=== PATIENT | female | born 1965 | race Caucasian/White ===

== ENCOUNTER 2023-12-28 14:11 | Inpatient (IN) | payer MEDICARE, OTHER ==
[~2023-12-28] VITALS: Ht 170.2 cm; Wt 90.7 kg
[2023-12-28] MEDS: IV NS 1000 ML 1,000 ML IV ONE ×2 (14:57→19:25)
[2023-12-28] MEDS: HYDROMORPHONE 1 MG/1 ML DISP.SYRIN IV ONE (15:15)
[2023-12-28] MEDS ORDERED: PANTOPRAZOLE SODIUM 40 MG VIAL ONE (15:57)
[2023-12-28] MEDS ORDERED: ONDANSETRON 4 MG/2 ML VIAL ONE (15:57)
[2023-12-28 16:06] LABS: *BILIRUBIN,URIN 2+ (NEGATIVE); *BLOOD, URINE NEGATIVE (NEGATIVE); *CLARITY,URINE CLEAR (CLEAR); *COLOR,URINE DARK YELLOW (YELLOW); *KETONES,URINE TRACE (NEGATIVE); *PROTEIN,URINE 2+ (NEGATIVE); *UROBILINOGEN,URINE 0.2 E.U./dl (NORMAL); LEUKOCYTE ESTERASE ,URINE NEGATIVE (NEGATIVE); NITRITE, URINE NEGATIVE (NEGATIVE); UGLUCOSE NEGATIVE (NEGATIVE)
[2023-12-28] MEDS: ONDANSETRON 4 MG/2 ML VIAL IV ONE (16:06)
[2023-12-28] MEDS: PANTOPRAZOLE SODIUM 40 MG VIAL IV ONE (16:06)
[2023-12-28] MEDS ORDERED: ONDA-104 PO (16:16)
[2023-12-28] MEDS ORDERED: PANT40TA2 PO (16:16)
[2023-12-28] MEDS ORDERED: POTA20PA34 PO (16:16)
[2023-12-28] MEDS ORDERED: ACET325C7 PO (16:16)
[2023-12-28] MEDS ORDERED: VIT1TABL46 PO (16:16)
[2023-12-28] MEDS ORDERED: DEXT38GE12 PO (16:16)
[2023-12-28] MEDS ORDERED: INSU100C4 SQ (16:16)
[2023-12-28] MEDS ORDERED: APIX5TAB PO (16:16)
[2023-12-28] MEDS ORDERED: GLUC1KIT IM (16:16)
[2023-12-28] MEDS ORDERED: INSU100I26 SQ (16:16)
[2023-12-28] MEDS ORDERED: LOPE2TAB25 PO (16:16)
[2023-12-28] MEDS ORDERED: NITR0.4T48 SL (16:16)
[2023-12-28] MEDS ORDERED: AMIO100T4 PO (16:16)
[2023-12-28] MEDS ORDERED: LEVA1.2528 NEB (16:16)
[2023-12-28] MEDS ORDERED: FLUD0.1T PO (16:16)
[2023-12-28] MEDS ORDERED: SEVE800T8 PO (16:16)
[2023-12-28] MEDS ORDERED: LEVO125T8 PO (16:16)
[2023-12-28] MEDS ORDERED: MIDO10TA PO (16:16)
[2023-12-28] MEDS ORDERED: LINA5TAB PO (16:16)
[2023-12-28] MEDS ORDERED: AMIN30LI2 PO (16:16)
[2023-12-28 16:37] LABS: BACTERIA,URINE FEW /HPF (NONE SEEN); RBC,URINE 0-3 /HPF (0-3); SQUAMOUS EPITHELIAL CELL,UR FEW /HPF (NONE SEEN)
[2023-12-28 17:01] LABS: NUCLEATED RED BLOOD CELLS 0.1 /100WBC
[2023-12-28 17:24] LABS: ALANINE AMINOTRANSFERASE 115 U/L (14-59); ALBUMIN 3.2 g/dL (3.4-5.0); ALKALINE PHOSPHATASE 239 U/L (50-136); ASPARTATE AMINOTRANSFERASE 176 U/L (15-37); BILIRUBIN,DIRECT 0.9 mg/dL (0.0-0.2); BILIRUBIN,TOTAL 1.9 mg/dL (0.2-1.0); CALCIUM 9.5 mg/dL (8.5-10.1); CARBON DIOXIDE 24 mmol/L (21-32); CHLORIDE 99 mmol/L (98-107); CREATININE 3.5 mg/dL (0.6-1.3); GLUCOSE 297 mg/dL (74-106); LIPASE 19 U/L (16-77); POTASSIUM 3.5 mmol/L (3.5-5.1); SODIUM SERUM 139 mmol/L (136-145); TOTAL PROTEIN, SERUM 6.7 g/dL (6.4-8.2); UREA NITROGEN, BLOOD 36 mg/dL (7-18)
[2023-12-28 17:31] LABS: WHITE BLOOD COUNT (AUTO) 11.9 K/uL (3.8-11.8)
[2023-12-28 17:32] LABS: HEMOGLOBIN 14.5 g/dL (10.9-14.3); RED BLOOD CELL COUNT(AUTO) 4.46 MIL/uL (3.63-4.92)
[2023-12-28 17:33] LABS: LYMPHOCYTES % (AUTO) 3.5 % (20.5-51.5); MEAN CORPUSCULAR HEMOGLOBIN 32.6 uug (24.7-32.8); MEAN CORPUSCULAR HGB CONC 33 g/dL (32.3-35.6); MEAN CORPUSCULAR VOLUME 98.7 fL (75.5-95.3); NEUTROPHILS % (AUTO) 92.6 % (38.5-71.5); PLATELET COUNT (AUTO) 288 K/uL (179-408); RED CELL DISTRIBUTION WIDTH 16.4 % (12.3-17.7)
[2023-12-28 17:34] LABS: EOSINOPHILS % (AUTO) 0.1 % (0.0-7.0); LYMPHOCYTES # (AUTO) 0.4 K/uL (0.8-4.8); MONOCYTES # (AUTO) 0.5 K/uL (0.1-1.30); MONOCYTES % (AUTO) 3.8 % (0.0-11.0); NEUTROPHILS # (AUTO) 11.1 K/uL (1.8-8.9)
[2023-12-28 17:35] LABS: DIFFERENTIAL COMMENT 1
[2023-12-28] MEDS ORDERED: HYDROCODONE/APAP 5-325MG TABLET PO PRN (20:00)
[2023-12-28] MEDS ORDERED: REMEDY ESSENTIAL ZINC PASTE 113 GM TP PRN (20:00)
[2023-12-28] MEDS ORDERED: NOREPINEPHRINE BITARTRATE 32 MG in IV NORMAL SALINE 218 ML IV PRN (21:30)
[2023-12-28] MEDS ORDERED: PIPERACILLIN SODIUM/TAZOBACTAM 4.5 G in IV DEXTROSE 5% 50 ML IV SCH (22:00)
[2023-12-28] MEDS: VANCOMYCIN IV 1,000 MG in IV DEXTROSE 5% 250 ML IV ONE (22:00)
[2023-12-28] MEDS ORDERED: VANCOMYCIN IV 200 ML ONE (22:38)
[2023-12-28] MEDS ORDERED: PIPERACILLIN/TAZO 4.5 GM VIAL IV ONE (22:39)
[2023-12-28] MEDS ORDERED: NOREPINEPHRINE BITARTRATE 4 MG/4 ML VIAL IV ONE (22:39)
[2023-12-28] MEDS ORDERED: DEXTROSE 50% 50 ML DISP.SYRIN IV PRN (22:45)
[2023-12-28] MEDS: ONDANSETRON 4 MG/2 ML VIAL IV PRN (23:04)
[2023-12-28] MEDS: PIPERACILLIN SODIUM/TAZOBACTAM 4.5 G in IV DEXTROSE 5% 50 ML IV SCH (23:04)
[2023-12-28] MEDS: BLOOD SUGAR DIAGNOSTIC 1 EACH STRIP VI SCH (23:15)
[2023-12-28] MEDS ORDERED: INSULIN REGULAR, HUMAN 1000 UNIT/10 ML VIAL ONE (23:37)
[2023-12-28] MEDS: INSULIN REGULAR, HUMAN 1000 UNIT/10 ML VIAL SQ PRN (23:41)
[2023-12-29] VITALS (67 sets, daily range): BP systolic 30–152; BP diastolic 15–117; TEMP 97.2–98; O2SAT 82–99
[2023-12-29] MEDS ORDERED: ZOLPIDEM 5 MG TABLET PO PRN (01:00)
[2023-12-29 04:59] LABS: BASOPHILS # (AUTO) 0.4 K/UL (0.0-0.2); BASOPHILS % (AUTO) 3.1 % (0.0-2.0); HEMATOCRIT 45.1 % (31.2-41.9); HEMOGLOBIN 15.1 g/dL (10.9-14.3); LYMPHOCYTES # (AUTO) 0.5 K/uL (0.8-4.8); LYMPHOCYTES % (AUTO) 4.2 % (20.5-51.5); MEAN CORPUSCULAR HEMOGLOBIN 33.1 uug (24.7-32.8); MEAN CORPUSCULAR HGB CONC 34 g/dL (32.3-35.6); MONOCYTES # (AUTO) 0.6 K/uL (0.1-1.30); MONOCYTES % (AUTO) 5.1 % (0.0-11.0); NEUTROPHILS % (AUTO) 87.6 % (38.5-71.5); PLATELET COUNT (AUTO) 256 K/uL (179-408); RED BLOOD CELL COUNT(AUTO) 4.56 MIL/uL (3.63-4.92); RED CELL DISTRIBUTION WIDTH 16.8 % (12.3-17.7); WHITE BLOOD COUNT (AUTO) 12.6 K/uL (3.8-11.8)
[2023-12-29 05:12] LABS: CALCIUM 9.3 mg/dL (8.5-10.1); CREATININE 4.4 mg/dL (0.6-1.3); MAGNESIUM 3.1 mg/dL (1.8-2.4); PHOSPHOROUS 5.2 mg/dL (2.5-4.9)
[2023-12-29 05:17] LABS: DIFFERENTIAL COMMENT 1
[2023-12-29] MEDS ORDERED: PIPERACILLIN/TAZO 4.5 GM VIAL IV ONE (05:25)
[2023-12-29] MEDS: ACETAMINOPHEN 325 MG TABLET PO PRN (05:29)
[2023-12-29 05:42] LABS: BAND % (MANUAL) 10 % (0-10); LYMPHOCYTES % (MANUAL) 13 % (20-40); MONOCYTES % (MANUAL) 8 % (2-10); NEUTROPHILS % (MANUAL) 69 % (42-75)
[2023-12-29] MEDS: PANTOPRAZOLE SODIUM 40 MG TABLET.DR PO SCH (06:06)
[2023-12-29] MEDS ORDERED: DEXTROSE 50% 50 ML DISP.SYRIN IV PRN (07:00)
[2023-12-29] MEDS: IV NORMAL SALINE 500 ML IV ONE (08:15)
[2023-12-29] MEDS: NOREPINEPHRINE BITARTRATE 32 MG in IV NORMAL SALINE 218 ML IV PRN (08:37)
[2023-12-29] MEDS ORDERED: ACET-2154 PO (11:09)
[2023-12-29] MEDS: BLOOD SUGAR DIAGNOSTIC 1 EACH STRIP VI SCH (11:38)
[2023-12-29] MEDS: INSULIN REGULAR, HUMAN 1000 UNIT/10 ML VIAL SQ PRN (11:42)
[2023-12-29] MEDS ORDERED: ACETAMINOPHEN 325 MG TABLET-SA PATIENTS-PAIN ONLY PO PRN (12:00)
[2023-12-29] MEDS ORDERED: NITROGLYCERIN 0.4 MG/TAB BOTTLE SL PRN (12:00)
[2023-12-29] MEDS ORDERED: ACETAMINOPHEN 325 MG TABLET PO PRN (12:15)
[2023-12-29] MEDS: APIXABAN 5 MG TABLET PO SCH (13:30)
[2023-12-29] MEDS: MIDODRINE HCL 5 MG TABLET PO SCH (13:49)
[2023-12-29] MEDS: SEVELAMER CARBONATE 800 MG TABLET PO SCH (13:49)
[2023-12-29] MEDS: PIPERACILLIN/TAZO 2.25 G in IV DEXTROSE 5% 50 ML IV SCH (14:26)
[2023-12-29] MEDS: FLUDROCORTISONE ACETATE 0.1 MG TABLET PO SCH (18:10)
[2023-12-29] MEDS: IV NS 1000 ML 1,000 ML IV PRN (20:18)
[2023-12-29] MEDS: INSULIN GLARGINE,HUM 300 UNITS/3 ML CARTRIDGE SQ SCH (20:32)
[2023-12-30] VITALS (101 sets, daily range): BP systolic 50–166; BP diastolic 18–146; TEMP 97.8–98.6; O2SAT 78–100
[2023-12-30] MEDS: LEVOTHYROXINE SODIUM 125 MCG TABLET PO SCH (06:38)
[2023-12-30 07:04] LABS: BASOPHILS # (AUTO) 0.1 K/UL (0.0-0.2); BASOPHILS % (AUTO) 1.6 % (0.0-2.0); EOSINOPHILS # (AUTO) 0.3 K/uL (0.0-0.7); EOSINOPHILS % (AUTO) 2.9 % (0.0-7.0); HEMATOCRIT 43.8 % (31.2-41.9); HEMOGLOBIN 14.8 g/dL (10.9-14.3); LYMPHOCYTES # (AUTO) 0.6 K/uL (0.8-4.8); LYMPHOCYTES % (AUTO) 7.1 % (20.5-51.5); MEAN CORPUSCULAR HEMOGLOBIN 33.4 uug (24.7-32.8); MEAN CORPUSCULAR HGB CONC 34 g/dL (32.3-35.6); MEAN CORPUSCULAR VOLUME 98.6 fL (75.5-95.3); MONOCYTES # (AUTO) 0.8 K/uL (0.1-1.30); MONOCYTES % (AUTO) 9.4 % (0.0-11.0); PLATELET COUNT (AUTO) 321 K/uL (179-408); RED BLOOD CELL COUNT(AUTO) 4.44 MIL/uL (3.63-4.92); RED CELL DISTRIBUTION WIDTH 16.8 % (12.3-17.7); WHITE BLOOD COUNT (AUTO) 8.8 K/uL (3.8-11.8)
[2023-12-30 07:21] LABS: DIFFERENTIAL COMMENT 1
[2023-12-30 07:33] LABS: CALCIUM 9.3 mg/dL (8.5-10.1); CREATININE 5.1 mg/dL (0.6-1.3); MAGNESIUM 3.3 mg/dL (1.8-2.4); PHOSPHOROUS 4.8 mg/dL (2.5-4.9); POTASSIUM 3.9 mmol/L (3.5-5.1)
[2023-12-30] MEDS: AMIODARONE HCL 200 MG TABLET PO SCH (09:00)
[2023-12-30] MEDS: LINAGLIPTIN 5 MG TABLET PO SCH (09:08)
[2023-12-30] MEDS ORDERED: DEXTROSE 50% 50 ML DISP.SYRIN IV PRN (15:00)
[2023-12-30] MEDS: BLOOD SUGAR DIAGNOSTIC 1 EACH STRIP VI SCH (16:17)
[2023-12-30] MEDS ORDERED: BLOOD SUGAR DIAGNOSTIC 1 EACH STRIP VI SCH (16:30)
[2023-12-30] MEDS: IV NS 1000 ML 1,000 ML IV PRN (18:33)
[2023-12-31] VITALS (51 sets, daily range): BP systolic 95–157; BP diastolic 44–127; TEMP 97.4–98.7; O2SAT 96–100
[2023-12-31 04:52] LABS: CALCIUM 8.1 mg/dL (8.5-10.1); CREATININE 5.6 mg/dL (0.6-1.3); MAGNESIUM 2.9 mg/dL (1.8-2.4); PHOSPHOROUS 5.1 mg/dL (2.5-4.9); POTASSIUM 3.6 mmol/L (3.5-5.1)
[2023-12-31] MEDS: INSULIN REGULAR, HUMAN 1000 UNIT/10 ML VIAL SQ PRN (08:20)
[2024-01-01] VITALS (19 sets, daily range): BP systolic 93–117; BP diastolic 45–62; TEMP 96.5–98.5; O2SAT 98–100
[2024-01-01 05:13] LABS: BASOPHILS % (AUTO) 0.4 % (0.0-2.0); EOSINOPHILS % (AUTO) 0.5 % (0.0-7.0); HEMATOCRIT 26.9 % (31.2-41.9); HEMOGLOBIN 8.9 g/dL (10.9-14.3); LYMPHOCYTES # (AUTO) 0.5 K/uL (0.8-4.8); LYMPHOCYTES % (AUTO) 9.1 % (20.5-51.5); MEAN CORPUSCULAR HEMOGLOBIN 32.9 uug (24.7-32.8); MEAN CORPUSCULAR HGB CONC 33 g/dL (32.3-35.6); MONOCYTES # (AUTO) 0.5 K/uL (0.1-1.30); MONOCYTES % (AUTO) 8.2 % (0.0-11.0); NEUTROPHILS % (AUTO) 81.8 % (38.5-71.5); PLATELET COUNT (AUTO) 137 K/uL (179-408); RED BLOOD CELL COUNT(AUTO) 2.72 MIL/uL (3.63-4.92); RED CELL DISTRIBUTION WIDTH 16.9 % (12.3-17.7); WHITE BLOOD COUNT (AUTO) 6.1 K/uL (3.8-11.8)
[2024-01-01 05:17] LABS: DIFFERENTIAL COMMENT 1
[2024-01-01 05:22] LABS: CALCIUM 7.7 mg/dL (8.5-10.1); CREATININE 5.1 mg/dL (0.6-1.3); MAGNESIUM 2.6 mg/dL (1.8-2.4); PHOSPHOROUS 4.1 mg/dL (2.5-4.9)
[2024-01-01 05:25] LABS: POTASSIUM 2.6 mmol/L (3.5-5.1)
[2024-01-01 12:19] LABS: CALCIUM 7.8 mg/dL (8.5-10.1); CREATININE 2.7 mg/dL (0.6-1.3)
[2024-01-01 12:24] LABS: POTASSIUM 2.7 mmol/L (3.5-5.1)
[2024-01-01] MEDS: POTASSIUM CHLORIDE 50 ML IV SCH (15:09)
[2024-01-01 15:33] LABS: BASOPHILS # (AUTO) 0.1 K/UL (0.0-0.2); BASOPHILS % (AUTO) 3.1 % (0.0-2.0); HEMATOCRIT 25.9 % (31.2-41.9); HEMOGLOBIN 8.8 g/dL (10.9-14.3); LYMPHOCYTES # (AUTO) 0.3 K/uL (0.8-4.8); LYMPHOCYTES % (AUTO) 5.7 % (20.5-51.5); MEAN CORPUSCULAR HEMOGLOBIN 32.9 uug (24.7-32.8); MEAN CORPUSCULAR HGB CONC 34 g/dL (32.3-35.6); MONOCYTES # (AUTO) 0.4 K/uL (0.1-1.30); MONOCYTES % (AUTO) 9.1 % (0.0-11.0); NEUTROPHILS # (AUTO) 3.7 K/uL (1.8-8.9); NEUTROPHILS % (AUTO) 81.1 % (38.5-71.5); PLATELET COUNT (AUTO) 136 K/uL (179-408); RED BLOOD CELL COUNT(AUTO) 2.67 MIL/uL (3.63-4.92); RED CELL DISTRIBUTION WIDTH 16.1 % (12.3-17.7); WHITE BLOOD COUNT (AUTO) 4.6 K/uL (3.8-11.8)
[2024-01-01 15:37] LABS: DIFFERENTIAL COMMENT 1
[2024-01-01 18:09] LABS: *OCCULT BLOOD STOOL POSITIVE (NEGATIVE)
[2024-01-01 23:06] LABS: HEPATITIS B SURFACE AB, QUAL Reactive (.); HEPATITIS B SURFACE AG Negative (Negative)
[2024-01-02 00:30] VITALS: BP 104/58; TEMP 97.8; O2SAT 93
[2024-01-02 04:10] VITALS: BP 95/58; TEMP 98; O2SAT 96
[2024-01-02 06:20] LABS: BASOPHILS % (AUTO) 0.4 % (0.0-2.0); EOSINOPHILS % (AUTO) 0.6 % (0.0-7.0); HEMOGLOBIN 8.6 g/dL (10.9-14.3); LYMPHOCYTES # (AUTO) 0.4 K/uL (0.8-4.8); LYMPHOCYTES % (AUTO) 11.5 % (20.5-51.5); MEAN CORPUSCULAR HEMOGLOBIN 33.5 uug (24.7-32.8); MEAN CORPUSCULAR HGB CONC 34 g/dL (32.3-35.6); MEAN CORPUSCULAR VOLUME 97.5 fL (75.5-95.3); MONOCYTES # (AUTO) 0.4 K/uL (0.1-1.30); MONOCYTES % (AUTO) 11.7 % (0.0-11.0); NEUTROPHILS # (AUTO) 2.8 K/uL (1.8-8.9); NEUTROPHILS % (AUTO) 75.8 % (38.5-71.5); PLATELET COUNT (AUTO) 123 K/uL (179-408); RED BLOOD CELL COUNT(AUTO) 2.57 MIL/uL (3.63-4.92); WHITE BLOOD COUNT (AUTO) 3.7 K/uL (3.8-11.8)
[2024-01-02 06:38] LABS: CALCIUM 7.5 mg/dL (8.5-10.1); CREATININE 3.2 mg/dL (0.6-1.3); MAGNESIUM 1.8 mg/dL (1.8-2.4); PHOSPHOROUS 2.9 mg/dL (2.5-4.9); POTASSIUM 2.8 mmol/L (3.5-5.1)
[2024-01-02 06:53] LABS: DIFFERENTIAL COMMENT 1
[2024-01-02 08:13] VITALS: BP 91/40; TEMP 98
[2024-01-02] MEDS ORDERED: ACID1TAB4 PO (10:24)
[2024-01-02] MEDS ORDERED: PANT40TA49 PO (10:24)
[2024-01-02] MEDS ORDERED: APIX2.5T PO (10:24)
[2024-01-02] MEDS ORDERED: PIPE2.257 IV (10:24)
[2024-01-02 11:59] VITALS: BP 94/43; TEMP 98; O2SAT 100
[2024-01-02 12:06] VITALS: BP 94/43
== END 2024-01-02 16:45 | DRG 385 ==
LOC: ER 14:11 → CCU 20:55 → TELE3 01-01 18:10
PROC: 02HV33Z Insertion of Infusion Device into Superior Vena Cava, Percutaneous Approach (ICD-10-PCS; principal; 2023-12-28)
PROC: 5A1D70Z Performance of Urinary Filtration, Intermittent, Less than 6 Hours Per Day (ICD-10-PCS; 2023-12-29)
DX: K51.30 Ulcerative (chronic) rectosigmoiditis without complications (principal); N18.6 End stage renal disease; I13.2 Hypertensive heart and chronic kidney disease with heart failure and with stage 5 chronic kidney disease, or end stage renal disease; J96.10 Chronic respiratory failure, unspecified whether with hypoxia or hypercapnia; R17 Unspecified jaundice; I95.9 Hypotension, unspecified; K56.41 Fecal impaction; E11.22 Type 2 diabetes mellitus with diabetic chronic kidney disease; Z99.2 Dependence on renal dialysis; I48.0 Paroxysmal atrial fibrillation; E03.9 Hypothyroidism, unspecified; D63.1 Anemia in chronic kidney disease; Z74.01 Bed confinement status; E11.65 Type 2 diabetes mellitus with hyperglycemia; I50.9 Heart failure, unspecified; J45.909 Unspecified asthma, uncomplicated; M89.8X9 Other specified disorders of bone, unspecified site; E87.6 Hypokalemia; G47.30 Sleep apnea, unspecified; Z79.4 Long term (current) use of insulin; Z79.01 Long term (current) use of anticoagulants; Z79.84 Long term (current) use of oral hypoglycemic drugs; Z90.49 Acquired absence of other specified parts of digestive tract
CPT/HCPCS: 36415; 70030-TC; 71045; 83605; 83690; 83735; 84100; 84484; 85025; 86706; 87340; 90937; 93005; 93307; A4606; A4663; A6213; G0378; J1815; J2405; J2470; J2543; J3370; J3480; J3490; J7040; J7050